=== PATIENT | male | born 1965 | race Caucasian/White ===

== ENCOUNTER → 2019-09-06 | Outpatient (CLI) | payer OTHER ==
[~2019-09-06] MED LIST: ASPIRIN81 MG PO; BUSPIRONE HCL5 MG PO; COQ-10100 MG PO; DOXAZOSIN MESYLA2 MG PO; FENOFIBRATE145 MG PO; GLUCOSAMINE1000 MG PO; LAMOTRIGINE100 MG PO; LOSARTAN POTASS25 MG PO; MAGNESIUM OXID400 MG PO; MELOXICAM7.5 MG PO; METFORMIN HCL500 MG PO; METOPROLOL PO; OMEPRAZOLE40 MG PO; SERTRALINE HCL100 MG PO; SPIRONOLACTONE25 MG PO; [UNRECOGNIZED DRUG - OTHER] PO
--- NOTE | 2019-09-06 10:45 | Diagnostic Imaging Report ---
BARIUM enema, CLINICAL HISTORY: Dyspepsia, colon cancer screening Fluoroscopic time: 2.87 minutes Total dose (DEYA): 123 mGy DISCUSSION: Photographic Enlarger Operator film of the abdomen demonstrates moderate volume of contrast material within the colon limiting evaluation. After the rectal tube is advanced into the rectum and the balloon inflated (performed by the technologist), barium is infused into the rectum in a retrograde fashion via gravity, until the terminal ileum is opacified. Sequential fluoroscopic images of the colon are obtained by the radiologist, with additional overhead images obtained by the technologist. Allowing for limitations of suboptimal prep and retained fecal material, no obvious filling defect, obstruction, or intrinsic/extrinsic mucosal abnormality is identified. Diverticula are noted arising off the sigmoid colon. IMPRESSION: Sigmoid diverticulosis. Otherwise, unremarkable barium enema examination allowing for limitation of suboptimal prep and retained fecal material. Signed by: Dr. Kamaljit Cowan MD on 09/06/2019 10:42 AM
--- NOTE | 2019-09-06 14:26 | Diagnostic Imaging Report ---
Upper GI examination Clinical history: Dyspepsia Fluoroscopic time: 0.53 minutes Total dose (DEYA): 35.6 mGy Comparison: None Technique/findings: Ornamental Plasterer Helper images demonstrate retained contrast material from prior barium enema. Effervescent crystals and thin/thick barium was provided patient orally without issue. Esophageal motility is within normal limits. The esophageal mucosa is unremarkable without evidence for filling defect or stricture. There is a small hiatal hernia present. The gastric folds/mucous are unremarkable. The duodenal C-loop and position of the ligament of Treitz are within normal limits. The proximal small bowel mucosa is unremarkable. Impression: Small hiatal hernia. Otherwise, unremarkable upper GI examination. Signed by: Dr. Kamaljit Cowan MD on 09/06/2019 2:23 PM
== END ==
LOC: DX 07:34
PROVIDERS: ATTEND Internal Medicine Gastroenterology
DX: Z12.11 Encounter for screening for malignant neoplasm of colon (principal); K30 Functional dyspepsia
CPT/HCPCS: 74246; 74280